=== PATIENT | female | born 1980 | race Caucasian/White ===

== ENCOUNTER 2024-01-01 12:58 | Outpatient (RCR) | payer BC, SELFPAY ==
[2024-01-01 13:10] VITALS: BP 124/83
[2024-01-01] MEDS: INJECTAFER 265 MG IV (13:21)
[2024-01-01 14:00] VITALS: BP 127/79
== END 2024-01-02 11:17 | disposition home or self-care (01) ==
LOC: OID 12:58
PROVIDERS: ATTENDING PHYSICIAN Physician Assistant
DX: D50.0 Iron deficiency anemia secondary to blood loss (chronic) (principal); N93.9 Abnormal uterine and vaginal bleeding, unspecified
CPT/HCPCS: 96365; J1439

== ENCOUNTER 2024-01-08 11:21 | Outpatient (RCR) | payer BC, SELFPAY ==
[2024-01-08 11:30] VITALS: BP 136/80
[2024-01-08] MEDS: INJECTAFER 265 MG IV (11:37)
[2024-01-08 12:12] VITALS: BP 119/74
== END 2024-01-09 09:05 | disposition home or self-care (01) ==
LOC: OID 11:21
PROVIDERS: ATTENDING PHYSICIAN Physician Assistant
DX: D50.0 Iron deficiency anemia secondary to blood loss (chronic) (principal); N93.9 Abnormal uterine and vaginal bleeding, unspecified
CPT/HCPCS: 96365; J1439

== ENCOUNTER → 2024-09-11 07:59 | Outpatient (REF) | payer BC, SELFPAY | LOC: HWWDC 07:59 | PROVIDERS: ATTENDING PHYSICIAN Obstetrics & Gynecology; FAMILY PHYSICIAN Physician Assistant | DX: Z12.31 Encounter for screening mammogram for malignant neoplasm of breast (principal) | CPT/HCPCS: 77063; 77067 ==